=== PATIENT | female | born 1960 | race Caucasian/White ===

== ENCOUNTER 2017-05-16 04:39 | Outpatient (CLI) | payer MEDICARE, MEDICAID ==
[~2017-05-16 04:39] MED LIST: APIX5TAB3 PO; DICL100G15 TOP; LANTUS SUBCUT; LIRA0.6P SQ; ROSU20TA PO; SYN0.088T PO
== END 2017-05-16 23:59 | disposition home or self-care (01) ==
LOC: DIABETIC 04:39
PROVIDERS: ATTEND Specialist
DX: E11.65 Type 2 diabetes mellitus with hyperglycemia (principal); J44.9 Chronic obstructive pulmonary disease, unspecified
CPT/HCPCS: G0108

== ENCOUNTER 2017-12-19 03:08 | Outpatient (CLI) | payer MEDICARE, MEDICAID | END 2017-12-19 23:59 | disposition home or self-care (01) | LOC: DIABETIC 03:08 | PROVIDERS: ATTEND Specialist | DX: E11.65 Type 2 diabetes mellitus with hyperglycemia (principal); Z79.4 Long term (current) use of insulin; J44.9 Chronic obstructive pulmonary disease, unspecified; E03.9 Hypothyroidism, unspecified | CPT/HCPCS: G0108 ==

== ENCOUNTER 2018-04-12 12:24 | Emergency (ER) | payer MEDICARE, MEDICAID ==
[~2018-04-12] VITALS: Ht 160 cm; Wt 103.0 kg
[2018-04-12] MEDS ORDERED: morphine 4 MG/ML inj SYRINge IV PRN (13:40)
[2018-04-12] MEDS ORDERED: ondansetron/PF 4mg/2ml inj IV ONE (13:40)
[2018-04-12] MEDS ORDERED: normal saline 1000ML IV soln IVB ONE (13:40)
[2018-04-12] MEDS ORDERED: LORazepam 2 mg/ml vial IV ONE (13:40)
[2018-04-12 14:26] VITALS: BP 116/70
[2018-04-12] MEDS ORDERED: CYCL-1 PO (14:34)
--- NOTE | 2018-04-12 14:35 | NUR ---
assumed care from ricky ROBLERO for lunch break
[2018-04-12] MEDS ORDERED: HYDROcodone/acetaminophen 10/325mg tab PO ONE (14:55)
[2018-04-12] MEDS ORDERED: traMADol 50MG tablet PO ONE (15:00)
== END 2018-04-12 15:45 | disposition home or self-care (01) ==
LOC: ER 12:24
DX: S16.1XXA Strain of muscle, fascia and tendon at neck level, initial encounter (principal); M25.552 Pain in left hip; Z88.0 Allergy status to penicillin; Z91.018 Allergy to other foods; Z88.2 Allergy status to sulfonamides; Z88.1 Allergy status to other antibiotic agents; Z88.6 Allergy status to analgesic agent; Z88.5 Allergy status to narcotic agent; Z79.4 Long term (current) use of insulin; Z79.899 Other long term (current) drug therapy; W10.8XXA Fall (on) (from) other stairs and steps, initial encounter; Y93.01 Activity, walking, marching and hiking; Y92.89 Other specified places as the place of occurrence of the external cause; Y99.8 Other external cause status
CPT/HCPCS: 72125; 74176; 99284

== ENCOUNTER 2019-07-31 14:15 | Outpatient (CLI) | payer MEDICARE, MEDICAID ==
[~2019-07-31 14:15] MED LIST changes: +CYCL-1 PO; -ROSU20TA PO; +ROSU20TA2 PO
[2019-07-31] MEDS ORDERED: VENL75TA4 PO (15:15)
[2019-07-31] MEDS ORDERED: TOUGEO SQ (15:15)
[2019-07-31] MEDS ORDERED: INSU300I3 SQ (15:16)
[2019-07-31] MEDS ORDERED: GABA300C PO (15:18)
[2019-07-31] MEDS ORDERED: METO-467 PO (15:18)
[2019-07-31] MEDS ORDERED: MOME45CR3 TOP (15:19)
[2019-07-31 16:34] LABS: BASOPHILS # (AUTO) 0.1 X10'3 (0-0.2); BASOPHILS % (AUTO) 0.7 % (0-1); EOSINOPHILS # (AUTO) 0.1 X10'3 (0-0.9); EOSINOPHILS % (AUTO) 1.2 % (0-6); LYMPHOCYTES # (AUTO) 2.6 X10'3 (1.1-4.8); LYMPHOCYTES % (AUTO) 29.7 % (21-51); MEAN CORPUSCULAR HEMOGLOBIN 30.9 PG (27.0-31.0); MEAN CORPUSCULAR HGB CONC 32.8 g/dL (33.0-36.5); MEAN CORPUSCULAR VOLUME 94.3 FL (78-98); MEAN PLATELET VOLUME 8.4 FL (7.4-10.4); MONOCYTES # (AUTO) 0.5 X10'3 (0-0.9); MONOCYTES % (AUTO) 6.3 % (2-12); NEUTROPHILS # (AUTO) 5.4 X10'3 (1.8-7.7); NEUTROPHILS % (AUTO) 62.1 % (42-75); PRE OP HEMATOCRIT 41.2 % (35.0-45.0); PRE OP HEMOGLOBIN 13.5 g/dL (12.0-16.0); PRE OP PLATELET COUNT 274 X10'3 (140-440); RED BLOOD COUNT 4.36 X10'6 (4.20-5.60); RED CELL DISTRIBUTION WIDTH 13.5 % (11.5-14.5)
[2019-07-31 17:08] LABS: HEMOGLOBIN A1C 11.6 % (4.5-6.2)
[2019-07-31 17:26] LABS: ALBUMIN 3.4 G/DL (3.4-5.0); ALBUMIN/GLOBULIN RATIO 0.9 (1.1-1.5); ALKALINE PHOSPHATASE 106 IU/L (46-116); BLOOD UREA NITROGEN 13 MG/DL (7-18); BUN/CREATININE RATIO 13.4 (6.6-38.0); CALCIUM 8.7 MG/DL (8.5-10.1); CHLORIDE 99 MMOL/L (99-107); CREATININE 0.97 MG/DL (0.40-0.90); PRE OP ALT 50 U/L (30-65); PRE OP ANION GAP 8 (8-16); PRE OP AST 37 U/L (10-37); PRE OP BILIRUB, TOTAL 0.4 MG/DL (0.0-1.0); PRE OP POTASSIUM 3.7 MMOL/L (3.4-5.1); PRE OP SODIUM 135 MMOL/L (135-145); TOTAL CARBON DIOXIDE 27.6 MMOL/L (24-32); TOTAL PROTEIN 7.1 G/DL (6.4-8.2); eGFR 59 ML/MIN
[2019-07-31 17:28] LABS: PRE OP GLUCOSE 436 MG/DL (70-104)
== END 2019-07-31 23:59 | disposition home or self-care (01) ==
LOC: PRE-OP 14:15 → EDSTATUS 08-08 13:15
PROVIDERS: ATTEND Orthopaedic Surgery
DX: Z01.812 Encounter for preprocedural laboratory examination (principal); M17.12 Unilateral primary osteoarthritis, left knee; S83.242D Other tear of medial meniscus, current injury, left knee, subsequent encounter; S83.282D Other tear of lateral meniscus, current injury, left knee, subsequent encounter; M25.562 Pain in left knee; Q79.60 Ehlers-Danlos syndrome, unspecified; E11.51 Type 2 diabetes mellitus with diabetic peripheral angiopathy without gangrene; M10.9 Gout, unspecified; E03.9 Hypothyroidism, unspecified; I10 Essential (primary) hypertension; E66.01 Morbid (severe) obesity due to excess calories
CPT/HCPCS: 36415; 71046; 80053; 83036; 84443; 85025; 87635; 93005